=== PATIENT | female | born 1945 | race Two or more races ===

== ENCOUNTER → 2024-09-06 09:55 | Outpatient (CLI) | payer OTHER ==
[~2024-09-06 09:55] MED LIST: COZAAR25 MG PO; DUI500 PO; MEMANTINE HCL5 MG PO; MULTIPLE VITAM1 EAC2 PO; TRAM1TAB98 PO
[2024-09-06 11:22] LABS: URINE APPEARANCE Clear; URINE BILIRRUBIN Negative (NEGATIVE); URINE BLOOD Moderate; URINE COLOR Yellow; URINE GLUCOSE Negative (NEGATIVE); URINE KETONE Negative (NEGATIVE); URINE LEUKOCYTE Moderate; URINE NITRATE Negative; URINE PROTEIN Trace (NEGATIVE); URINE UROBILINOGEN 0.2 E.U./dl
[2024-09-06 11:26] LABS: URINE BACTERIA 36.7 uL (0.0-1933); URINE EPITHELIAL CELLS 17.8 uL (0.0-38.8); URINE RBC 120.1 uL (0.0-20.8); URINE WBC 209.9 uL (0.0-23.2)
[2024-09-06 12:06] LABS: URINE CAST 0.58 uL (0.0-1.40)
[2024-09-06 12:08] LABS: ALBUMIN 3.2 gm/dL (3.4-5.0); BILIRUBIN TOTAL 0.9 mg/dL (0.3-1.2); CALCIUM 9.3 mg/dL (8.5-10.1); CREATININE SERUM 0.43 mg/dL (0.55-1.02); GFR 142.01; GLOBULINA 3.9 G/DL (2.4-3.5); POTASSIUM 4.9 mEq/L (3.5-5.1); TOTAL PROTEIN 7.1 gm/dL (6.4-8.2)
== END | disposition home or self-care (01) ==
LOC: LAB 09:55
PROVIDERS: ATTEND Orthopaedic Surgery Sports Medicine
DX: D68.9 Coagulation defect, unspecified (principal)

== ENCOUNTER → 2024-09-08 | Day surgery (SDC) | payer OTHER ==
[~2024-09-08] VITALS: Ht 149.9 cm; Wt 45.4 kg
[~2024-09-08] MED LIST changes: +CEFAZOLIN SODIUM 1,000 MG VIAL IV ONE; +CEFAZOLIN SODIUM 1,000 MG VIAL ONE; +CEFOXITIN SODIUM 2,000 MG VIAL IV ONE; +MEPERIDINE HCL/PF 25 MG/ML VIAL IM PRN; +PROMETHAZINE HCL 25 MG/ML AMPUL IM PRN; +hydrALAZINE HCL 20 MG VIAL ONE
[2024-09-08 11:43] VITALS: BP 140/80
== END | disposition home or self-care (01) ==
LOC: ADM 09-05 12:45 → CIR.AMB 12:45
PROVIDERS: ATTEND Orthopaedic Surgery Sports Medicine
DX: S52.532B Colles' fracture of left radius, initial encounter for open fracture type I or II (principal); I10 Essential (primary) hypertension; J45.909 Unspecified asthma, uncomplicated; F03.90 Unspecified dementia, unspecified severity, without behavioral disturbance, psychotic disturbance, mood disturbance, and anxiety
CPT/HCPCS: 25609; L8699